=== PATIENT | male | born 1985 | race Caucasian/White ===

== ENCOUNTER 2021-07-05 17:58 | Emergency (ER) | payer OTHER, SELFPAY ==
[2021-07-05 19:23] LABS: SARS-CoV-2 NAA Rapid Test Not Detected (NotDetected)
== END 2021-07-05 20:45 | disposition home or self-care (01) ==
LOC: CSHERS 17:58
DX: J18.9 Pneumonia, unspecified organism (principal); Z20.822 Contact with and (suspected) exposure to COVID-19
CPT/HCPCS: 71045; U0002